=== PATIENT | female | born 1980 ===

== ENCOUNTER → 2021-12-09 | Outpatient (CLI) | payer BC | LOC: LAB SHORT 16:00 → LAB 16:00 | PROVIDERS: Family Medicine | DX: Z01.419 Encounter for gynecological examination (general) (routine) without abnormal findings (principal) | CPT/HCPCS: G0123 ==

== ENCOUNTER → 2022-10-06 | Outpatient (CLI) | payer BC | END | disposition home or self-care (01) | LOC: LAB 09:17 → LAB SHORT 09:17 | DX: N39.0 Urinary tract infection, site not specified (principal) | CPT/HCPCS: 87077; 87086; 87186 ==